=== PATIENT | female | born 1995 | race Hispanic/Latino ===

== ENCOUNTER 2018-04-26 09:11 | Emergency (ER) | payer MEDICAID ==
[2018-04-26 10:07] LABS: BASOPHILS % (AUTO) 0.2 % (0.0-5.0); EOSINOPHILS % (AUTO) 1.3 % (0.0-8.0); HEMATOCRIT 35.2 % (36-48); LYMPHOCYTES % (AUTO) 22.1 % (21.0-51.0); MEAN CORPUSCULAR HEMOGLOBIN 32.1 pg (27.0-33.0); MEAN CORPUSCULAR VOLUME 91.5 fL (79-99); MONOCYTES % (AUTO) 6.7 % (3.0-13.0); NEUTROPHILS % (AUTO) 69.7 % (40.0-77.0); NUCLEATED RED BLOOD CELLS 0.1 % (0.0-0.19); PLATELET COUNT (AUTO) 226 K/uL (130-400); RED BLOOD CELL COUNT(AUTO) 3.84 MIL/uL (4.00-5.50); RED CELL DISTRIBUTION WIDTH 12.1 % (11.0-15.5); WHITE BLOOD COUNT (AUTO) 6.7 K/uL (4.8-10.8)
[2018-04-26 10:22] LABS: APPEARANCE,URINE Clear (CLEAR); BILIRUBIN,URINE Negative (NEGATIVE); COLOR,URINE Yellow (YELLOW); GLUCOSE, URINE (UA) Negative (NEGATIVE); KETONES,URINE Negative (NEGATIVE); LEUKOCYTE ESTERASE ,URINE Trace (NEGATIVE); NITRATE,URINE Negative (NEGATIVE); OCCULT BLOOD,URINE Large (NEGATIVE); PROTEIN,URINE Trace (NEGATIVE)
[2018-04-26 10:27] LABS: CREATININE 0.6 mg/dL (0.5-1.5); POTASSIUM 3.5 mmol/L (3.5-5.1)
[2018-04-26 10:54] LABS: BACTERIA,URINE Rare /HPF (None Seen); RBC,URINE 0-1 /HPF (0-1); SQUAMOUS EPITHELIAL CELL,UR Few /HPF (0-2); WBC,URINE 0-1 /HPF (0-1)
== END 2018-04-26 12:30 | disposition home or self-care (01) ==
LOC: EDH 09:11
DX: O20.0 Threatened abortion (principal); Z3A.12 12 weeks gestation of pregnancy; Z87.891 Personal history of nicotine dependence
CPT/HCPCS: 36415; 76801; 80048; 81001; 84702; 85025

== ENCOUNTER 2018-11-18 18:19 | Inpatient (IN) | payer MEDICAID ==
[~2018-11-18] VITALS: Ht 157.5 cm; Wt 78.0 kg
[2018-11-18] MEDS ORDERED: LACTATED RINGERS 1000ML 1,000 ML IV PRN (19:15)
[2018-11-18] MEDS ORDERED: OXYTOCIN 10 USP UNITS/ML 20 UNIT in LACTATED RINGERS 1000ML 1,000 ML IV SCH (19:15)
[2018-11-18 20:02] LABS: APPEARANCE,URINE Cloudy (CLEAR); BILIRUBIN,URINE Negative (NEGATIVE); COLOR,URINE Yellow (YELLOW); GLUCOSE, URINE (UA) Negative (NEGATIVE); KETONES,URINE Negative (NEGATIVE); LEUKOCYTE ESTERASE ,URINE Moderate (NEGATIVE); NITRATE,URINE Negative (NEGATIVE); OCCULT BLOOD,URINE Negative (NEGATIVE); PROTEIN,URINE Negative (NEGATIVE)
[2018-11-18 20:12] LABS: RBC,URINE 0-1 /HPF (0-1)
[2018-11-18 20:14] LABS: BACTERIA,URINE Few /HPF (None Seen)
[2018-11-18 20:15] LABS: SQUAMOUS EPITHELIAL CELL,UR Few /HPF (0-2)
[2018-11-18 20:16] LABS: AMORPHOUS SEDIMENT,UR Few /LPF (None Seen); CALCIUM OXALATE CRYSTALS,UR Few /LPF (None Seen)
[2018-11-18 21:01] LABS: HEMATOCRIT 30.9 % (36-48); MEAN CORPUSCULAR HEMOGLOBIN 32.8 pg (27.0-33.0); MEAN CORPUSCULAR HGB CONC 35.1 g/dL (32.0-36.0); MEAN CORPUSCULAR VOLUME 93.4 fL (79-99); PLATELET COUNT (AUTO) 196 K/uL (130-400); RED BLOOD CELL COUNT(AUTO) 3.31 MIL/uL (4.00-5.50); RED CELL DISTRIBUTION WIDTH 12.9 % (11.0-15.5); WHITE BLOOD COUNT (AUTO) 7.3 K/uL (4.8-10.8)
[2018-11-19] MEDS ORDERED: OXYTOCIN-LR 20 UNITS/1000 ML 1,000 ML IV ONE ×2 (04:51→10:41)
[2018-11-19] MEDS ORDERED: FLU VACC QS2019-20 36MOS UP/PF 60 MCG/0.5 ML ML IM SCH (09:00)
[2018-11-19] MEDS ORDERED: MEPERIDINE-PF 50 MG/ML SYG ONE (09:25)
[2018-11-19] MEDS ORDERED: PROMETHAZINE HCL 25 MG/ML 1ML AMPULE IM SCH (09:30)
[2018-11-19] MEDS ORDERED: MEPERIDINE-PF 50 MG/ML SYG IVP SCH (09:30)
[2018-11-19] MEDS ORDERED: DIPH,PERTUSS(ACELL),TET VAC/PF 0.5 ML VIAL IM PRN (10:30)
[2018-11-19] MEDS ORDERED: LANOLIN 30GM OINTMENT TP PRN (10:30)
[2018-11-19] MEDS ORDERED: BENZOCAINE/LANOLIN/ALOE VERA 60 ML AEROSOL TP PRN (10:30)
[2018-11-19] MEDS ORDERED: WITCH HAZEL 1 PAD TP PRN (10:30)
[2018-11-19] MEDS ORDERED: MEASLES/MUMPS/RUBELLA VACCINE, LIVE 0.5 ML/VIAL SQ PRN (10:30)
[2018-11-19] MEDS: IBUPROFEN 600 MG TABLET PO PRN ×2 (11:38→19:00)
[2018-11-19 12:20] VITALS: BP 93/53
[2018-11-19] MEDS ORDERED: FLU VACC QS2019-20 36MOS UP/PF 60 MCG/0.5 ML ML IM ONE (15:45)
[2018-11-19] MEDS: ACETAMINOPHEN 325 MG TAB PO PRN (15:48)
[2018-11-19 16:37] VITALS: BP 96/59
[2018-11-19 19:38] VITALS: BP 96/48
[2018-11-19] MEDS: DOCUSATE SODIUM 100 MG CAP PO SCH (21:29)
[2018-11-19 23:00] VITALS: BP 100/48
[2018-11-20] MEDS: IBUPROFEN 600 MG TABLET PO PRN ×2 (00:49→08:53)
[2018-11-20 03:36] VITALS: BP 100/52
[2018-11-20 05:35] LABS: HEMATOCRIT 28.9 % (36-48); MEAN CORPUSCULAR HEMOGLOBIN 32.4 pg (27.0-33.0); MEAN CORPUSCULAR HGB CONC 35.1 g/dL (32.0-36.0); MEAN CORPUSCULAR VOLUME 92.3 fL (79-99); PLATELET COUNT (AUTO) 172 K/uL (130-400); RED BLOOD CELL COUNT(AUTO) 3.13 MIL/uL (4.00-5.50); WHITE BLOOD COUNT (AUTO) 8.8 K/uL (4.8-10.8)
[2018-11-20 07:15] LABS: HEPATITIS Bs ANTIGEN SCREEN P Negative (Negative)
[2018-11-20 07:41] VITALS: BP 100/58
--- NOTE | 2018-11-20 08:00 | NUR ---
JANNA MARIE CNM ROUNDED AND DISCHARGED PT TO HOME PATIENT IS STABLE.
[2018-11-20] MEDS: DOCUSATE SODIUM 100 MG CAP PO SCH (08:52)
[2018-11-20] MEDS: ACETAMINOPHEN 325 MG TAB PO PRN (12:54)
--- NOTE | 2018-11-20 13:30 | NUR ---
DISCHARGE INSTRUCTIONS GIVEN AND REINFORCE TO TAKE MOTRIN OVER THE COUNTER NEEDED FOR PAIN OR DISCOMFORT AND FOR CRAMPING. NO SCRIPT WAS WRITTEN BY JANNA MARIE CNM.
--- NOTE | 2018-11-20 14:20 | NUR ---
PATIENT WAS TAKEN VIA W/C TO FAMILY [facility]LE CARRYING BABY IN ARMS. PATIENT IS STABLE AND DENIES PAIN.
== END 2018-11-20 14:20 | disposition home or self-care (01) | DRG 560 ==
LOC: LDH 18:19 → WSH 11-19 12:20
PROVIDERS: ADMIT Obstetrics & Gynecology; ATTEND Obstetrics & Gynecology
PROC: 10E0XZZ Delivery of Products of Conception, External Approach (ICD-10-PCS; principal; 2018-11-19)
PROC: 10907ZC Drainage of Amniotic Fluid, Therapeutic from Products of Conception, Via Natural or Artificial Opening (ICD-10-PCS; 2018-11-19)
PROC: 3E0234Z Introduction of Serum, Toxoid and Vaccine into Muscle, Percutaneous Approach (ICD-10-PCS; 2018-11-19)
PROC: 3E02340 Introduction of Influenza Vaccine into Muscle, Percutaneous Approach (ICD-10-PCS; 2018-11-19)
DX: O80 Encounter for full-term uncomplicated delivery (principal); Z37.0 Single live birth; Z23 Encounter for immunization; Z3A.38 38 weeks gestation of pregnancy; Z90.49 Acquired absence of other specified parts of digestive tract
CPT/HCPCS: 36415; 81001; 85027; 86592; 86850; 86900; 86901; 87340; A4351; G0378; J2175; J2590

== ENCOUNTER 2019-01-13 05:44 | Day surgery (SDC) | payer MEDICAID ==
[2019-01-12 16:31] LABS: HEMATOCRIT 38.8 % (36-48); MEAN CORPUSCULAR HEMOGLOBIN 31.2 pg (27.0-33.0); MEAN CORPUSCULAR HGB CONC 33.6 g/dL (32.0-36.0); MEAN CORPUSCULAR VOLUME 92.8 fL (79-99); PLATELET COUNT (AUTO) 261 K/uL (130-400); RED BLOOD CELL COUNT(AUTO) 4.18 MIL/uL (4.00-5.50); WHITE BLOOD COUNT (AUTO) 8.1 K/uL (4.8-10.8)
[2019-01-12 16:37] VITALS: BP 97/53
[2019-01-12 18:38] LABS: BAND NEUTROPHILS % (MANUAL) 5 % (0-2); LYMPHOCYTES % (MANUAL) 23 % (22-44); MONOCYTES % (MANUAL) 11 % (2-9); REACTIVE LYMPHOCYTES 6 % (0-0); SEGMENTED NEUTROPHILS % 55 % (40-70)
[2019-01-13] VITALS (19 sets, daily range): BP systolic 92–125; BP diastolic 40–74
[~2019-01-13] VITALS: Ht 162.6 cm; Wt 70.1 kg
[2019-01-13] MEDS ORDERED: GENT VIOLET/BRLNT GRN/PROFLAV 1 EACH MED..SWAB TP ONE (05:45)
[2019-01-13] MEDS: LACTATED RINGERS 1000ML 1,000 ML IV SCH ×2 (06:30→12:55)
[2019-01-13] MEDS ORDERED: ACETIC ACID 0.25% 1,000 ML IRRIG.SOLN ONE (07:06)
[2019-01-13] MEDS ORDERED: MIDAZOLAM HCL 1 MG/ML 2ML VIAL ONE (08:05)
[2019-01-13] MEDS ORDERED: ROCURONIUM 10MG/1ML SYR 10 MG/ML ML ONE (08:07)
[2019-01-13] MEDS ORDERED: LIDOCAINE PF 2% 5ML ABBOJECT ONE (08:07)
[2019-01-13] MEDS ORDERED: PROPOFOL 10 MG/ML 20ML VIAL IV ONE (08:07)
[2019-01-13] MEDS ORDERED: FENTANYL CITRATE PF 50 MCG/1 ML 2ML VIAL ONE ×2 (08:13→09:39)
[2019-01-13] MEDS ORDERED: EPHEDRINE SULFATE 50 MG/ML AMPULE ONE (08:18)
[2019-01-13] MEDS ORDERED: ONDANSETRON HCL 4 MG/2 ML VIAL ONE (08:33)
[2019-01-13] MEDS ORDERED: DEXAMETHASONE SOD PHOSPHATE 10MG/ML 1ML VIAL ONE (08:35)
[2019-01-13] MEDS ORDERED: MEPERIDINE-PF 25 MG/ML SYG ONE ×3 (08:39→09:14)
[2019-01-13] MEDS ORDERED: KETOROLAC TROMETHAMINE 30MG/ML ONE (09:22)
[2019-01-13] MEDS ORDERED: HYDROMORPHONE 1 MG/1 ML AMP ONE (09:49)
--- NOTE | 2019-01-13 10:15 | NUR ---
RECEIVE PT RECEIVED FROM PACU VIA STRETCHER AWAKE ALERT ORIENTED X3. PT STABLE. PT STATES SHE STILL HAS PAIN TO LOWER ABDOMEN, SCALE OF 6. BUT FEELS A LOT BETTER AFTER PAIN MEDS GIVEN IN PACU. PT POSITIONED COMFORTABLY. OB PAD IN PLACE DRY AND INTACT, NO BLEEDING NOTED. PER PACU NURSE MONET CASTILLO TUBE FILLER HAD SEEN AND SPOKE WITH PT REGARDING PAIN. CALL [facility] WITHIN REACH, WAITING FOR .
--- NOTE | 2019-01-13 11:10 | NUR ---
DISCHARGE PT DISCHARGED VIA WHEELCHAIR WITH , PT STABLE, STATES SHE FEELS BETTER AND IS COMFORTABLE TO GO HOME. OB PAD REMAINS DRY AND INTACT. NO BLEEDING NOTED. DISCHARGE INSTRUCTIONS GIVEN TO AND PT, VERBALIZED UNDERSTANDING.
== END 2019-01-13 11:10 | disposition home or self-care (01) ==
LOC: DAH 05:44
PROVIDERS: ATTEND Obstetrics & Gynecology
DX: R87.613 High grade squamous intraepithelial lesion on cytologic smear of cervix (HGSIL) (principal); F41.8 Other specified anxiety disorders; F32.9 Major depressive disorder, single episode, unspecified; Z90.49 Acquired absence of other specified parts of digestive tract; Z72.89 Other problems related to lifestyle; Z87.891 Personal history of nicotine dependence; Z83.3 Family history of diabetes mellitus
CPT/HCPCS: 36415; 57520; 84703; 85025; 86850; 86900; 86901; A4215; A4221; A4222; A4223; A4351; A4663; A6260; J1100; J1170; J1885; J2001; J2175 ×3; J2250; J2405; J2704; J3010; J3490; J7120